=== PATIENT | male | born 1975 | race African-American/Black ===

== ENCOUNTER 2023-04-06 23:17 | Emergency (ER) | payer OTHER | END 2023-04-07 02:15 | disposition home or self-care (01) | LOC: CSHERS 23:17 | DX: M79.641 Pain in right hand (principal); M79.2 Neuralgia and neuritis, unspecified | CPT/HCPCS: 99283 ==

== ENCOUNTER 2025-03-28 16:27 | Emergency (ER) | payer OTHER, SELFPAY ==
[2025-03-28] MEDS ORDERED: cefTRIAXone (ROCEPHIN) 500 MG VIAL ONE (16:57)
[2025-03-28] MEDS ORDERED: Ibuprofen 200 MG TAB ONE (16:57)
[2025-03-28 17:08] LABS: Glucose, Urine (Dipstick) Normal (Negative); Leukocyte 25 (Negative); Protein, Urine (Dipstick) 15 mg/dl (Neg-Trace); Specific Gravity, Urine 1.015 (1.005-1.030)
[2025-03-28 17:30] LABS: CAUTI Indications for Culture Dysuria,urgency,freq; RBC/HPF None Seen HPF (0-3); WBC/HPF 0-3 HPF (0-3)
[2025-03-28 17:31] LABS: Bacteria/HPF Rare-Few HPF (None Seen); Urine Culture Reflex No No
[2025-03-29 03:43] LABS: Chlam.trachomatis by PCR,Urine Not Detected (NotDetected); GC N.gonorrhoeae PCR,UrineVOID Not Detected (NotDetected)
== END 2025-03-28 18:40 | disposition home or self-care (01) ==
LOC: CSHERS 16:27
DX: N50.819 Testicular pain, unspecified (principal); R30.0 Dysuria
CPT/HCPCS: 76870; 81001; 87491; 87591; 93976; 96372; J0696